=== PATIENT | male | born 1975 | race African-American/Black ===

== ENCOUNTER → 2016-08-02 | Outpatient (REF) | payer OTHER ==
[2016-08-02 10:12] LABS: #MOTILE SPERM COUNTED 2.5
[2016-08-02 10:13] LABS: #IMMOTILE SPERM COUNTED 29.5; % MOTILITY 7 (> 25%)
== END ==
LOC: M LAB REF 08:45
PROVIDERS: ATTEND General Practice
DX: Z00.00 Encounter for general adult medical examination without abnormal findings (principal)

== ENCOUNTER → 2016-09-12 | Outpatient (REF) | payer OTHER ==
[2016-09-12 13:48] LABS: BLOOD UREA NITROGEN 16 MG/DL (7-18); CREATININE FOR GFR 1.25 MG/DL (0.70-1.30); GLOMERULAR FILTRATION RATE > 60.0 (>60)
== END ==
LOC: M LABNEURO 12:48
PROVIDERS: ATTEND Psychiatry & Neurology Neurology
DX: N18.9 Chronic kidney disease, unspecified (principal)

== ENCOUNTER 2017-09-26 11:54 | Emergency (ER) | payer OTHER ==
[2017-09-26] MEDS: AUGMENTIN 875 MG TAB PO (12:24)
[2017-09-26] MEDS: ONDANSETRON 4 MG ORAL DISINTEGRATING TAB (Q0162 PER 1MG) PO (12:24)
[2017-09-26] MEDS: KETOROLAC 60 MG/2 ML VIAL (J1885) IM (12:24)
== END 2017-09-26 13:34 | disposition home or self-care (01) ==
LOC: M ED 11:54
DX: J01.90 Acute sinusitis, unspecified (principal); I10 Essential (primary) hypertension; M54.5 Low back pain; F32.9 Major depressive disorder, single episode, unspecified; Z79.899 Other long term (current) drug therapy
CPT/HCPCS: Q0162